=== PATIENT | female | born 1940 | race African-American/Black ===

== ENCOUNTER 2020-10-12 11:46 | Emergency (ER) | payer MEDICARE ==
[~2020-10-12] VITALS: Ht 170.2 cm; Wt 70.0 kg
[2020-10-12 12:08] VITALS: BP 149/68
[2020-10-12] MEDS ORDERED: ACET-3209 PO (15:05)
== END 2020-10-12 15:48 | disposition home or self-care (01) ==
LOC: ER 11:47
DX: S83.91XA Sprain of unspecified site of right knee, initial encounter (principal); Z79.899 Other long term (current) drug therapy; Z91.013 Allergy to seafood; W19.XXXA Unspecified fall, initial encounter; Z91.81 History of falling; Y93.89 Activity, other specified; Y92.89 Other specified places as the place of occurrence of the external cause; Y99.8 Other external cause status
CPT/HCPCS: 29505; 73564; 99284